=== PATIENT | male | born 2005 | race Caucasian/White ===

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

== ENCOUNTER 2024-08-30 07:35 | Emergency (ER) | payer BC, OTHER ==
[~2024-08-30] VITALS: Ht 167.6 cm; Wt 56.7 kg
[2024-08-30] MEDS ORDERED: DOCUSATE SODIUM 100 MG/10 ML UDC OT ONE (08:00)
== END 2024-08-30 08:47 | disposition home or self-care (01) ==
LOC: ED 07:35
DX: H61.21 Impacted cerumen, right ear (principal)